=== PATIENT | female | born 1985 | race Caucasian/White ===

== ENCOUNTER 2021-05-24 10:34 | Emergency (ER) | payer OTHER ==
[2021-05-24 11:52] LABS: BASOPHIL 0.2 % (0-2); EOSINOPHIL 0.2 % (0-5); HCT 41.7 % (37.0-47.0); LYMPHOCYTE 11.8 % (15-48); MCH 30.8 pg (25.0-31.0); MCHC 33.6 g/dL (32.0-36.0); MCV 91.9 fL (78.0-100.0); MONOCYTE 3.4 % (0-12); NRBC 0; PLT 329 K/uL (150-400); RBC 4.54 M/uL (4.20-5.40); RDW 12.3 % (11.5-14.0)
[2021-05-24 12:01] LABS: BILIRUBIN NEGATIVE (NEGATIVE); BLOOD TRACE-INTACT Ery/uL (NEGATIVE); CLARITY CLEAR (CLEAR); COLOR YELLOW (YELLOW); GLUCOSE (U) NORMAL (NORMAL); LEUKOCYTES NEGATIVE Leu/uL (NEGATIVE); NITRITE NEGATIVE (NEGATIVE); PROTEIN NEGATIVE (NEGATIVE); SPECIFIC GRAVITY <=1.005 (1.001-1.030); UROBILINOGEN 0.2 mg/dL (0.2-1.0); pH 6.5 (5.0-9.0)
[2021-05-24 12:04] LABS: HCG (URINE) SCREEN NEGATIVE (NEGATIVE)
[2021-05-24 12:10] LABS: URINARY WBC RARE
[2021-05-24 12:14] LABS: BILIRUBIN - TOTAL 0.2 mg/dL (0.2-1.0); BUN/CREAT RATIO (CALC) 13.3 RATIO; CREATININE 0.75 mg/dL (0.51-0.95); GLOBULIN (CALCULATION) 4.2 g/dL; POTASSIUM 4.3 mmol/L (3.5-5.1); TOTAL PROTEIN 8.2 g/dL (6.4-8.2)
[2021-05-24 13:12] LABS: LACTIC ACID 2.7 mmol/L (0.4-1.9)
[2021-05-24 15:36] LABS: LACTIC ACID 1.9 mmol/L (0.4-1.9)
[2021-05-24] MEDS ORDERED: BENTYL10 MG PO ×2 (15:43→15:44)
[2021-05-24] MEDS ORDERED: ONDANSETRON ODT4 MG PO (15:44)
== END 2021-05-24 15:45 | disposition home or self-care (01) ==
LOC: FER 10:34
PROVIDERS: Emergency Medicine
DX: R10.9 Unspecified abdominal pain (principal); R11.2 Nausea with vomiting, unspecified; Z88.1 Allergy status to other antibiotic agents
CPT/HCPCS: 36415; 80053; 81001; 83605; 83690; 84703; 85025; J2270; J2405; J2765; J7030; Q9967